=== PATIENT | female | born 1960 | race Caucasian/White ===

== ENCOUNTER 2022-02-27 05:29 | Day surgery (SDC) | payer BC ==
[2022-02-22 09:46] VITALS: BMI 28.3
[~2022-02-27 05:29] MED LIST: BUPIVACAINE HCL/PF 0.5% (5MG/ML) 10 ML VIAL NR ONE; LIDOCAINE HCL 1%, 10 MG/ML (20ML VIAL) NR ONE; ceFAZolin 2 GRAM PREMIX BAG IVPB ONE
[2022-02-27] MEDS ORDERED: FENTANYL CITRATE/PF 50 MCG/ML VIAL ONE ×4 (11:06→19:10)
[2022-02-27] MEDS ORDERED: SUCCINYLCHOLINE CHLORIDE 200 MG/10 ML SYRINGE ONE (11:06)
[2022-02-27] MEDS ORDERED: ROCURONIUM BROMIDE 50 MG/5 ML SYRINGE ONE ×2 (11:06→15:26)
[2022-02-27] MEDS ORDERED: LIDOCAINE HCL 2% 100 MG/5 ML DISP.SYRIN ONE (11:06)
[2022-02-27] MEDS ORDERED: PROPOFOL 20 ML ONE (11:06)
[2022-02-27] MEDS ORDERED: MIDAZOLAM HCL 2 MG/2 ML SINGLE DOSE VIAL ONE (11:07)
[2022-02-27] MEDS ORDERED: BUPIVACAINE HCL/PF 0.5% (5MG/ML) 10 ML VIAL ONE (12:56)
[2022-02-27] MEDS ORDERED: LIDOCAINE HCL 1%, 10 MG/ML (20ML VIAL) ONE (12:56)
[2022-02-27] MEDS ORDERED: DEXAMETHASONE SOD PHOSPHATE 4 MG/1 ML VIAL ONE (13:38)
[2022-02-27] MEDS ORDERED: ceFAZolin SODIUM 1 GM VIAL ONE (13:38)
[2022-02-27] MEDS ORDERED: ceFAZolin 2 GRAM PREMIX BAG IVPB ONE (13:40)
[2022-02-27] MEDS ORDERED: BUPIVACAINE HCL/PF 0.5% (5MG/ML) 10 ML VIAL NR ONE (15:14)
[2022-02-27] MEDS ORDERED: KETOROLAC TROMETHAMINE 30 MG/1 ML VIAL ONE (16:29)
[2022-02-27] MEDS ORDERED: ONDANSETRON 4 MG/2 ML VIAL ONE (16:29)
[2022-02-27] MEDS ORDERED: HYDROmorphone HCl 2 MG/ML VIAL ONE (16:33)
[2022-02-27] MEDS ORDERED: NEOSTIGMINE METHYLSULFATE 0.5 MG/1 ML - 10 ML MDV ONE (16:44)
[2022-02-27] MEDS ORDERED: GLYCOPYRROLATE 0.2 MG/1 ML VIAL ONE (16:44)
[2022-02-27] MEDS ORDERED: SUGAMMADEX SODIUM 200 MG/2 ML VIAL ONE (16:48)
[2022-02-27] MEDS ORDERED: ONDANSETRON 4 MG/2 ML VIAL IVPUSH PRN ×2 (17:02→17:10)
[2022-02-27] MEDS ORDERED: HYDROmorphone HCl 2 MG/ML VIAL IVPB PRN (17:05)
[2022-02-27] MEDS ORDERED: PROMETHAZINE HCL 25 MG/1 ML VIAL IVPUSH PRN (17:10)
[2022-02-27] MEDS ORDERED: HYDROmorphone HCL CARPU-JECT 2 MG/1 ML DISP.SYRIN IVPUSH PRN ×2 (17:11)
[2022-02-27] MEDS ORDERED: ACETAMINOPHEN 1000 MG/100 ML BAG IVPB ONE ×2 (17:11→17:19)
[2022-02-27] MEDS ORDERED: SODIUM CHLORIDE 1,000 ML IV SCH (17:15)
[2022-02-27] MEDS ORDERED: LACTATED RINGERS SOLUTION 1,000 ML IV SCH (17:15)
[2022-02-27 18:41] LABS: HEMATOCRIT 36.6 % (32.4-45.2); MCH 28.1 pg (25.7-33.7); MCHC 32.8 g/dl (32.0-36.0); MEAN CELL VOLUME 85.6 fl (80-96); MEAN PLT VOLUME 7.4 fl (7.5-11.1); PLATELET COUNT 259 10^3/uL (134-434); RBC 4.28 M/mm3 (3.60-5.2); RDW 13.3 % (11.6-15.6); WHITE BLOOD COUNT 10.4 K/mm3 (4.0-10.0)
[2022-02-27 19:15] LABS: ALBUMIN 3.2 g/dl (3.4-5.0); BILIRUBIN,TOTAL 0.9 mg/dL (0.2-1); BLOOD UREA NITROGEN 13.3 mg/dL (7-18); CALCIUM 8.5 mg/dL (8.5-10.1); CREATININE 0.9 mg/dL (0.55-1.3); TOT PROT 5.9 g/dl (6.4-8.2)
[2022-02-27] MEDS: oxyCODONE HCL 5 MG TABLET PO PRN (21:11)
[2022-02-28] MEDS: FAMOTIDINE 20 MG/50 ML IVPB 20 MG/50 ML MG IVPB SCH ×2 (00:12→09:55)
[2022-02-28] MEDS: oxyCODONE HCL 5 MG TABLET PO PRN (04:13)
[2022-02-28] MEDS ORDERED: LEVOTHYROXINE NA 88 MCG TABLET (FP) PO SCH (07:00)
[2022-02-28] MEDS ORDERED: ACETAMINOPHEN 500 MG TABLET (FP) PO PRN (07:52)
[2022-02-28] MEDS ORDERED: oxyCODONE HCL 5 MG TABLET PO PRN (07:53)
[2022-02-28] MEDS ORDERED: DULoxetine HCL 20 MG CAPSULE.DR PO SCH (10:00)
[2022-02-28] MEDS ORDERED: HYDROCHLOROTHIAZIDE 12.5 MG CAPSULE (FP) PO SCH (10:00)
[2022-02-28] MEDS ORDERED: VALSARTAN 160 MG TABLET PO SCH (10:00)
[2022-02-28 11:44] LABS: HEMATOCRIT 32.7 % (32.4-45.2); HEMOGLOBIN 11.1 GM/dL (10.7-15.3); MCH 28.7 pg (25.7-33.7); MCHC 33.9 g/dl (32.0-36.0); MEAN CELL VOLUME 84.7 fl (80-96); MEAN PLT VOLUME 7.1 fl (7.5-11.1); PLATELET COUNT 229 10^3/uL (134-434); RBC 3.86 M/mm3 (3.60-5.2); RDW 13.4 % (11.6-15.6); WHITE BLOOD COUNT 9.2 K/mm3 (4.0-10.0)
[2022-02-28 12:05] LABS: ALBUMIN 2.9 g/dl (3.4-5.0); BLOOD UREA NITROGEN 17.2 mg/dL (7-18); CALCIUM 8.8 mg/dL (8.5-10.1)
[2022-02-28 12:07] LABS: CREATININE 0.9 mg/dL (0.55-1.3)
[2022-02-28 12:09] LABS: BILIRUBIN,TOTAL 1.2 mg/dL (0.2-1); TOT PROT 5.4 g/dl (6.4-8.2)
[2022-02-28 14:30] VITALS: BP 120/60; PULSE 64; RESP 16; TEMP 97.8
== END 2022-02-28 14:34 | disposition home or self-care (01) ==
LOC: MERGE 05:29 → JASU-SURG 05:29 → JASUSAT 05:29 → J5S 20:04 → JASUSAT 02-28 14:34
PROVIDERS: ATTEND Surgery
PROC: 0WQF4ZZ Repair Abdominal Wall, Percutaneous Endoscopic Approach (ICD-10-PCS; 2022-02-27)
PROC: 0DNW4ZZ Release Peritoneum, Percutaneous Endoscopic Approach (ICD-10-PCS; principal; 2022-02-27 13:00)
DX: K42.0 Umbilical hernia with obstruction, without gangrene (principal); K56.50 Intestinal adhesions [bands], unspecified as to partial versus complete obstruction
CPT/HCPCS: 36415; 80053; 85027; 86850; 86900; 86901; 94760